=== PATIENT | female | born 1980 | race Caucasian/White ===

== ENCOUNTER → 2021-01-29 16:52 | Outpatient (CLI) | payer OTHER, SELFPAY ==
[2021-01-29 17:40] LABS: Add Manual Diff / Slide Review NO; Basophils Absolute Auto 0 /uL (0-100); Basophils Percent Auto 0.6 % (0-2); Eosinophils Absolute Auto 200 /uL (0-450); Eosinophils Percent Auto 2.1 % (2-4); Hematocrit 36.3 % (36-46); Hemoglobin 11.8 g/dL (12.0-16.0); Lymphocytes Absolute Auto 2000 /uL (1100-4500); Lymphocytes Percent Auto 24.8 % (25-40); Mean Corpuscular HGB Conc 32.5 % (30-36); Mean Corpuscular Hemoglobin 26.8 PG (26-34); Mean Corpuscular Volume 82.3 fL (80-100); Monocytes Absolute Auto 400 /uL (0-900); Monocytes Percent Auto 5.5 % (3-14); Neutrophils Absolute Auto 5300 /uL (1500-7000); Platelet Count 394 X10^3/uL (150-400); Red Cell Distribution Width 15.5 % (11.6-14.8); White Blood Cell Count 7.9 X10^3/uL (4.5-11.0)
[2021-01-29 17:52] LABS: Hemoglobin A1C% w Est Avg Glu 5.6 % (4.0-6.0)
[2021-01-29 18:12] LABS: Alanine Aminotransferase 17 IU/L (<35); Albumin 4.6 g/dL (3.5-5.0); Albumin Globulin Ratio 1.5 (1.0-2.8); Alkaline Phosphatase 91 U/L (38-126); Aspartate Aminotransferase 19 IU/L (14-36); BUN Creatinine Ratio 23.9 (6-22); Bilirubin Total < 0.1 mg/dL (0.2-1.3); Blood Urea Nitrogen 11 mg/dL (7-17); Calcium 9.4 mg/dL (8.4-10.2); Carbon Dioxide 24 mmol/L (22-32); Chloride 103 mmol/L (98-107); Cholesterol 203 mg/dL (140-199); Estimated Glomerular Filt Rate > 60.0 mL/min (>60); Globulin 3.1 g/dL (1.7-4.1); Glucose 117 mg/dL (70-100); HDL Cholesterol 39 mg/dL (40-60); HEMOLYSIS < 15 (0-50); LDL Cholesterol Calculated 127 mg/dL (<100); Sodium 139 mmol/L (137-145); Total Protein 7.7 g/dL (6.3-8.2); Triglycerides 186 mg/dL (35-150)
[2021-01-29 18:42] LABS: TSH w/ Reflex to FT4 1.88 uIU/mL (0.47-4.68)
== END ==
PROVIDERS: PCP Family Medicine; Referring Provider Family Medicine; Visit Provider Family Medicine
DX: I10 Essential (primary) hypertension (principal); I42.2 Other hypertrophic cardiomyopathy; Z83.3 Family history of diabetes mellitus
CPT/HCPCS: 36415; 80053; 80061; 83036; 84443; 85025

== ENCOUNTER → 2021-01-31 14:12 | Outpatient (CLI) | payer OTHER, SELFPAY ==
--- NOTE | 2021-01-31 14:14 | DI.US.S_ITS ---
PROCEDURE: US PELVIC COMPLETE INDICATIONS: MENORRHAGIA TECHNIQUE: Real-time scanning was performed of the pelvic organs, with image documentation. Additional endovaginal scanning was necessary due to incomplete visualization of the adnexal and endometrial structures by transabdominal scanning. COMPARISON: None. FINDINGS: Uterus: The uterus measures 9.1 x 4.5 x 6.7 centimeters. Endometrial thickness is 11.6 millimeters. Uterine echotexture is normal. No uterine fibroids. The cervix is normal. Ovaries: Neither the right nor the left ovary could be visualized. Other: No pathologic free abdominal or pelvic fluid. IMPRESSION: Suboptimal exam due to body habitus, however no acute abnormality is identified. Dictated by: Kannan Romero M.D. on 01/31/2021 at 14:59 Approved by: Kannan Romero M.D. on 01/31/2021 at 15:02
== END ==
PROVIDERS: PCP Family Medicine; Referring Provider Family Medicine; Visit Provider Family Medicine
DX: N92.1 Excessive and frequent menstruation with irregular cycle (principal); I10 Essential (primary) hypertension; I42.2 Other hypertrophic cardiomyopathy; Z83.3 Family history of diabetes mellitus
CPT/HCPCS: 76830; 76856

== ENCOUNTER 2024-03-17 17:40 | Emergency (ER) | payer OTHER, SELFPAY ==
[2024-03-17] VITALS (10 sets, daily range): BP systolic 149–216; BP diastolic 84–96; PULSE 85–104; RESP 18–20; TEMP 36.7; O2SAT 95–99; BMI 33.8
[2024-03-17 19:00] LABS: Add Manual Diff / Slide Review NO; Basophils Absolute Auto 200 /uL (0-100); Basophils Percent Auto 1.4 % (0-2); Eosinophils Absolute Auto 100 /uL (0-450); Eosinophils Percent Auto 1.1 % (2-4); Hematocrit 38.9 % (36-46); Lymphocytes Absolute Auto 1800 /uL (1100-4500); Lymphocytes Percent Auto 16.8 % (25-40); Mean Corpuscular HGB Conc 33.4 % (30-36); Mean Corpuscular Hemoglobin 27.8 PG (26-34); Mean Corpuscular Volume 83.2 fL (80-100); Monocytes Absolute Auto 600 /uL (0-900); Monocytes Percent Auto 5.3 % (3-14); Neutrophils Absolute Auto 8100 /uL (1500-7000); Neutrophils Percent Auto 75.4 % (50-75); Platelet Count 338 X10^3/uL (150-400); Red Blood Cell Count 4.67 X10^6/uL (4.0-5.2); Red Cell Distribution Width 14.9 % (11.6-14.8); White Blood Cell Count 10.8 X10^3/uL (4.5-11.0)
[2024-03-17 19:09] LABS: Alanine Aminotransferase 19 IU/L (<35); Albumin 4.8 g/dL (3.5-5.0); Albumin Globulin Ratio 1.5 (1.0-2.8); Alkaline Phosphatase 92 U/L (38-126); Aspartate Aminotransferase 18 IU/L (14-36); BUN Creatinine Ratio 18.6 (6-22); Bilirubin Total 0.4 mg/dL (0.2-1.3); Blood Urea Nitrogen 8 mg/dL (7-17); Calcium 9.3 mg/dL (8.4-10.2); Carbon Dioxide 23 mmol/L (22-32); Chloride 105 mmol/L (98-107); Estimated Glomerular Filt Rate > 60 mL/min (>60); Globulin 3.2 g/dL (1.7-4.1); Glucose 113 mg/dL (70-100); HEMOLYSIS < 15 (0-50); Lipase 84 U/L (23-300); Sodium 136 mmol/L (137-145)
[2024-03-17 20:00] LABS: Urine Volume 10mL (spun)
[2024-03-17 20:02] LABS: Bacteria Urine None Seen; RBC Urine None Seen (0-5/HPF); Squamous Epithelial Cell Urine 1-5 /HPF (0-5/HPF); WBC Urine None Seen (0-5/HPF)
--- NOTE | 2024-03-17 20:07 | ED_ITS ---
HPI - Abdominal Pain General Chief Complaint: Abdominal Pain Stated Complaint: abd pain, sent by [facility] Time Seen by Provider: 03/17/24 19:24 Source: patient and family Mode of arrival: Ambulatory History of Present Illness HPI narrative: 44-year-old female with 5 days' duration of left lower quadrant crampy abdominal pain, constant, never gone, waxes and wanes, worse with movement. She might have had a previous kidney stone per in the room. No injury or trauma. No frequency of urination, no bloody urine. No flank area discomfort. No history of constipation or recent hard stools. Intermittent nausea with waves of pain, no vomiting, no diarrhea, no black or red stools. Last bowel movement earlier today not change the pain. Pain seems to be worse with any movement and ambulation and change in positions. She has not tried any medications to help with the pain. She denies history of diverticulitis, colitis, inflammatory bowel disease, Crohn's disease, ovarian cyst, pelvic infections. Her last period was about 5 weeks ago and she is a little late, concerned she might be . No vaginal bleeding. She has 3 prior term pregnancies, and many miscarriages, that she can not quantify. No household or close contact members with similar symptoms. Related Data Home Medications Medication Instructions Recorded Confirmed cholecalciferol (vitamin D3) 25 25 mcg PO DAILY 01/29/21 03/17/24 mcg (1,000 unit) capsule ferrous sulfate 325 mg (65 mg 325 mg PO DAILY 01/29/21 03/17/24 iron) tablet (Feosol) bqsuoilz-amr-sdhc-FA-Ca carb-vit K 1 tab PO DAILY 01/29/21 03/17/24 18 mg iron-400 mcg-500 mg tablet (Women's Multivitamin) Previous Rx's Medication Instructions Recorded norethindrone-e.estradiol 1 tab PO DAILY #84 tabs 03/10/21 triphasic 0.5 mg/0.75 mg/1 mg-35 mcg tablet (Ortho-Novum (28)) amoxicillin 875 mg-potassium 1 tab PO BID #20 tabs 11/30/22 clavulanate 125 mg tablet Allergies Allergy/AdvReac Type Severity Reaction Status Date / Time No Known Drug Allergies Allergy Verified 03/17/24 17:04 Review of Systems Review of Systems Narrative: As per HPI Patient History Medical History (Updated 03/17/24 @ 22:42 by Mena Mar RN) Dysmenorrhea Hypertrophic cardiomyopathy Hypertension Family history of diabetes mellitus Surgical History (Updated 04/13/21 @ 08:38 by Alley Bertrand) Anesthesia History of section (~05/2007) History of appendectomy (~03/2009) Family History (Updated 04/13/21 @ 08:41 by Alley Bertrand) Father Heart failure Kidney failure Diabetes mellitus History of heart disease Hyperlipidemia Mother Enlarged heart Heart murmur Diabetes mellitus Hyperlipidemia Brother Hypertrophic cardiomyopathy Hypertension Brother Hypertrophic cardiomyopathy Hypertension Social History Smoking Status: Never smoker Smoking Status: Never smoker alcohol intake frequency: holidays/special occasions only Substance Use Type: does not use Exam Initial Vital Signs Initial Vital Signs: Vital Signs Temperature 98.1 F 03/17/24 18:05 Pulse Rate 99 H 03/17/24 18:05 Respiratory Rate 20 03/17/24 18:05 Blood Pressure 200/96 H 03/17/24 18:05 Pulse Oximetry 98 03/17/24 18:05 Oxygen Delivery Method Room Air 03/17/24 18:05 Const General: cooperative HENMT Head: atraumatic Face and sinus: face symmetric Mouth: moist mucous membranes Eyes Eyelids: eyelids normal Conjunctivae: conjunctivae normal Sclera: sclerae normal Neck Neck: normal visual inspection and trachea midline Chest Chest: normal inspection of the chest Resp Effort & Inspection: normal respiratory effort, able to speak in complete sentences, no respiratory distress and no use of accessory muscles Auscultation: clear to auscultation bilaterally, no rales, no rhonchi and no wheezes Cardio Rate: regular rate Rhythm: regular rhythm Heart Sounds: no murmurs GI Other: Tenderness left lower quadrant, no obvious inguinal or other ventral hernia, no skin changes, no guarding or rebound, nondistended. No flank area discomfort. No tenderness to right lower quadrant or periumbilical or upper abdominal quadrants. Bowel sounds unremarkable. Back/Spine/Pelvis Back: No CVA tenderness Neuro General: patient alert Extrem General: no pedal edema Psych Attitude: cooperative Thought Content: normal Course Course Course Narrative: Left lower quadrant abdominal discomfort, hCG negative, white blood cell count 04112, hemoglobin normal, LFTs unremarkable, CT abdomen and pelvis shows epiploic appendagitis, with local focal fat necrosis, likely the cause of her symptoms, usually this is self-limited, treated with pain medications only. We will reach out to Dr. Campbell of surgery to see if she would like to do any specific near term follow-up, versus manage symptomatically only with return precautions as needed Orders Ordered: Discontinued Medications Morphine Sulfate (Morphine 4 Mg/Ml Inj) 4 mg IV NOW ONE Stop: 03/17/24 20:13 Last Admin: 03/17/24 20:21 Dose: 4 mg Documented By: STEPH Ondansetron HCl (Ondansetron 4 Mg/2 Ml Inj) 4 mg IV NOW PRN PRN Reason: Nausea And Vomiting Ondansetron HCl (Ondansetron 4 Mg Odt) 4 mg PO NOW PRN PRN Reason: Nausea And Vomiting Ondansetron HCl (Ondansetron 4 Mg/2 Ml Inj) 4 mg IV NOW ONE Stop: 03/17/24 20:13 Last Admin: 03/17/24 20:21 Dose: 4 mg Documented By: STEPH Reevaluation(s) Reevaluation #1: test is negative, patient would like pain medications if non. IV morphine/Zofran. CT abdomen and pelvis imaging requested. Consultations Consultation #1: Case discussed with surgery Dr. Campbell, epiploic appendagitis tends to be 5-7 days in duration, no specific treatment, self-limited, not necessary to follow up with her unless there is other concerns or developments. Analgesics as needed. Follow up with PCP seems reasonable. Return precautions Vital Signs Vital signs: Vital Signs - 8 hr 03/17/24 18:05 03/17/24 19:37 03/17/24 20:00 Temperature 98.1 F Pulse Rate 99 H 97 H 104 H Respiratory Rate 20 Blood Pressure 200/96 H Pulse Oximetry 98 98 99 Oxygen Delivery Method Room Air 03/17/24 20:30 03/17/24 20:55 03/17/24 20:55 Temperature Pulse Rate 92 H 99 H Respiratory Rate Blood Pressure 216/93 H Pulse Oximetry 97 96 Oxygen Delivery Method 03/17/24 21:00 03/17/24 21:30 03/17/24 22:00 Temperature Pulse Rate 89 85 88 Respiratory Rate 18 Blood Pressure Pulse Oximetry 95 95 96 Oxygen Delivery Method MDM - Abdominal Pain Differential Diagnosis Differential diagnosis: Likely abdominal pain, acute appendicitis, calculus of kidney, constipation, diverticulitis, gastroenteritis, small bowel obstruction and other Lab Data Attestation: I reviewed the patient's lab results. 03/17/24 18:34 03/17/24 18:34 Labs: Lab Results 03/17/24 03/17/24 Range/Units 18:34 19:00 WBC 10.8 (4.5-11.0) X10^3/uL RBC 4.67 (4.0-5.2) X10^6/uL Hgb 13.0 (12.0-16.0) g/dL Hct 38.9 (36-46) % MCV 83.2 (80-100) fL MCH 27.8 (26-34) PG MCHC 33.4 (30-36) % RDW 14.9 H (11.6-14.8) % Plt Count 338 (150-400) X10^3/uL Neut % (Auto) 75.4 H (50-75) % Lymph % (Auto) 16.8 L (25-40) % [place] % (Auto) 5.3 (3-14) % Eos % (Auto) 1.1 L (2-4) % Baso % (Auto) 1.4 (0-2) % Neut # (Auto) 8100 H (9580-9108) /uL Lymph # (Auto) 1800 (0110-6959) /uL [place] # (Auto) 600 (0-900) /uL Eos # (Auto) 100 (0-450) /uL Baso # (Auto) 200 H (0-100) /uL Sodium 136 L (137-145) mmol/L Potassium 4.0 (3.4-5.1) mmol/L Chloride 105 (98-107) mmol/L Carbon Dioxide 23 (22-32) mmol/L BUN 8 (7-17) mg/dL Creatinine 0.43 L (0.52-1.04) mg/dL Estimated GFR > 60 (>60) mL/min BUN/Creatinine Ratio 18.6 (6-22) Glucose 113 H (70-100) mg/dL Calcium 9.3 (8.4-10.2) mg/dL Total Bilirubin 0.4 (0.2-1.3) mg/dL AST 18 (14-36) IU/L ALT 19 (<35) IU/L Alkaline Phosphatase 92 (38-126) U/L Total Protein 8.0 (6.3-8.2) g/dL Albumin 4.8 (3.5-5.0) g/dL Globulin 3.2 (1.7-4.1) g/dL Albumin/Globulin Ratio 1.5 (1.0-2.8) Lipase 84 (23-300) U/L Urine RBC None seen (0-5/HPF) Urine WBC None seen (0-5/HPF) Ur Squamous Epith Cells 1-5 /hpf (0-5/HPF) Urine Bacteria None seen (None) Vol Urine Centrifuged 10ml (spun) Point of care testing: Point of Care Testing Test Results Negative Urine Dip Bedside Urine Glucose Negative Bedside Urine Bilirubin - Negative Bedside Urine Ketone - Negative Urine Specific [place] 1.030 Bedside Urine Occult Blood + Bedside Urine pH 6.0 Bedside Urine Protein - Negative Bedside Urine Urobilinogen - Negative Bedside Urine Nitrite - Negative Bedside Urine Leukocytes - Negative Esterase ECG Data Attestation: I personally reviewed and interpreted this ECG as follows: Interpretation: Normal sinus rhythm with rate 96, no obvious ST segment elevation or depression changes. Normal intervals. Critical Care Time Critical Care Time Critical Care Time: Yes Total Critical Care Time: 35 Attestation: The high probability of a clinically significant, sudden or life threatening deterioration of the [gastrointestinal, abdominopelvic] system(s) required my full and direct attention, intervention and personal management. The aggregate critical care time was [35] minutes. This time is in addition to time spent performing reported procedures but includes the following: [x] Data Review and interpretation [x] Patient assessment and monitoring of vital signs [x] Documentation [x] Medication orders and management Discharge Plan Departure Patient Disposition: Home Clinical Impression: Epiploic appendagitis Prescriptions: No Action amoxicillin-pot clavulanate 875-125 mg tablet 1 tab PO BID Qty: 20 0RF Rx Instructions: take with food. Take with probiotics Ortho-Novum 05/14/ (28) 0.5/0.75/1 mg- 35 mcg tablet 1 tab PO DAILY Qty: 84 1RF Women's Multivitamin 18 mg iron-400 mcg-500 mg tablet 1 tab PO DAILY ferrous sulfate [Feosol] 325 mg (65 mg iron) tablet 325 mg PO DAILY cholecalciferol (vitamin D3) 25 mcg (1,000 unit) capsule 25 mcg PO DAILY Referrals: Allan Arreaga, [Primary Care Provider] - Stand Alone Forms: Patient Portal/API
--- NOTE | 2024-03-17 20:13 | DI.CT.S_ITS ---
PROCEDURE: CT ABDOMEN PELVIS W CON INDICATIONS: LLQ abd pain, HCG Neg TECHNIQUE: After the administration of intravenous contrast, axial sections acquired from the lung bases to the pubic symphysis. Coronal and sagittal reformats were performed. For radiation dose reduction, the following was used: automated exposure control, adjustment of mA and/or kV according to patient size. COMPARISON: None. FINDINGS: Image quality: Diagnostic. Lower Chest: Large hiatal hernia. ABDOMEN: Liver: Hepatic steatosis. Patent portal vein. Gallbladder: No radiopaque gallstones or wall thickening. Biliary ducts: No biliary dilation. Pancreas: No ductal dilation. Spleen: Size is within normal limits. Adrenal Glands: No adrenal nodules. Kidneys and Ureters: No hydronephrosis. No solid mass. No complex renal cystic lesion which requires follow up. Stomach and Bowel: Normal colonic caliber, without significant wall thickening. Colonic diverticulosis without evidence of diverticulitis. Peritoneum: Focal fat stranding in the pericolonic fat of the left lower quadrant, most consistent with epiploic appendagitis. Ventral Wall: Small umbilical hernia containing fat. Abdominal Nodes: No retroperitoneal or mesenteric adenopathy by size criteria. Vessels: Aorta and inferior vena cava are normal in size. PELVIS: Pelvic Organs: Unremarkable. Bladder: No bladder wall thickening, accounting for underdistention. Pelvic Nodes: No enlarged lymph nodes. Miscellaneous: No inguinal hernias are seen. Bones: No aggressive osseous abnormality. IMPRESSION: Epiploic appendagitis/intraperitoneal fat necrosis in the left lower quadrant. Colonic diverticulosis without evidence of diverticulitis. Dictated by: Kaiden Jasmine M.D. on 03/17/2024 at 21:16 Approved by: Kaiden Jasmine M.D. on 03/17/2024 at 21:19
[2024-03-17] MEDS: MORPHINE 4 MG/ML INJ IV (20:21)
[2024-03-17] MEDS: ONDANSETRON 4 MG/2 ML INJ IV (20:21)
== END 2024-03-17 22:51 | disposition home or self-care (01) ==
PROVIDERS: Emergency Provider Emergency Medicine; PCP Family Medicine
DX: K63.89 Other specified diseases of intestine (principal)
CPT/HCPCS: 74177; 80053; 81003; 81015; 81025; 83690; 85025; 87086; 93005; 93010; 96374; 96375; 99284; J2270; J2405; Q9967